=== PATIENT | female | born 1955 | race Caucasian/White ===

== ENCOUNTER 2017-11-12 09:59 | Emergency (ER) | payer SELFPAY ==
[2017-11-12 10:55] LABS: ADD MAN DIFF? NO
[2017-11-12 11:19] LABS: BASO # 0.1 x10^3/uL (0.0-0.2); BASO % 1 % (0-3); EOS # 0.1 x10^3/uL (0.0-0.7); EOS % 1 % (0-3); HEMATOCRIT 42.9 % (36.0-47.0); HEMOGLOBIN 14.6 g/dL (12.0-15.5); LYMPH # 1.1 x10^3/uL (1.0-4.8); LYMPH % 11 % (24-48); MEAN CORPUSCULAR HEMOGLOBIN 28 pg (25-35); MEAN CORPUSCULAR HGB CONC 34 g/dL (31-37); MEAN CORPUSCULAR VOLUME 82 fL (79-100); MONO # 0.7 x10^3/uL (0.0-1.1); MONO % 7 % (0-9); NEUT # 7.5 x10^3uL (1.8-7.7); NEUT % 80 % (31-73); PLATELET COUNT 244 x10^3/uL (140-400); RED BLOOD COUNT 5.23 x10^6/uL (3.50-5.40); RED CELL DISTRIBUTION WIDTH 15.6 % (11.5-14.5); WHITE BLOOD COUNT 9.5 x10^3/uL (4.0-11.0)
[2017-11-12 11:24] LABS: ANION GAP 8 (6-14); BLOOD UREA NITROGEN 26 mg/dL (7-20); CALCIUM 9.3 mg/dL (8.5-10.1); CARBON DIOXIDE 29 mmol/L (21-32); CHLORIDE 103 mmol/L (98-107); CREATININE 1.1 mg/dL (0.6-1.0); GFR 50.8; GLUCOSE 175 mg/dL (70-99); POTASSIUM 4.5 mmol/L (3.5-5.1); SODIUM 140 mmol/L (136-145)
== END 2017-11-12 13:15 | disposition home or self-care (01) ==
LOC: ER 09:59
DX: I80.02 Phlebitis and thrombophlebitis of superficial vessels of left lower extremity (principal); E11.9 Type 2 diabetes mellitus without complications; E78.00 Pure hypercholesterolemia, unspecified; I11.0 Hypertensive heart disease with heart failure; I50.9 Heart failure, unspecified; Z88.2 Allergy status to sulfonamides; Z86.718 Personal history of other venous thrombosis and embolism
CPT/HCPCS: 36415; 80048; 85025; 93971; 99285-25

== ENCOUNTER 2019-10-02 09:39 | Emergency (ER) | payer SELFPAY ==
[~2019-10-02] VITALS: Ht 172.7 cm; Wt 97.3 kg
[~2019-10-02 09:39] MED LIST: APIX5TAB PO; CARV6.2511 PO; CEPH-264 PO; FURO40TA4 PO; LISI-338 PO; LISI10TA PO; LOVA10TA PO; METF500T16 PO; Metoprolol Tartrate PO; POTA20TA4 PO
[2019-10-02 10:14] LABS: BILIRUBIN,URINE NEGATIVE (NEG); CLARITY,URINE CLOUDY; NITRITE,URINE POSITIVE (NEG); PROTEIN,URINE 100 mg/dL (NEG-TRACE)
--- NOTE | 2019-10-02 10:14 | PHYS DOC ---
Past Medical History Past Medical History: CHF, Diabetes-Type II, High Cholesterol, Hypertension Additional Past Medical Histor: DVT Past Surgical History: No Surgical History Smoking Status: Never Smoker Alcohol Use: None Drug Use: None Adult General Chief Complaint Chief Complaint: URINARY FREQUENCY HPI HPI 63-year-old female with significant history of hypertension, DVT on Eliquis, who presents for evaluation of a one-day history of dark colored urine with urinary frequency. No dysuria, abdominal pain, nausea, vomiting. She also reports a two- week history of nonproductive cough. No fever, but having some mild chills. No significant travel history or sick contacts. Review of Systems Review of Systems General: No fevers, chills. Eyes: No blurred vision, diplopia. ENT: No nasal congestion, sore throat. CV: No chest pain, edema. Resp: No shortness of breath. Reports cough. GI: No abdominal pain, nausea, vomiting. : No dysuria. Reports urinary frequency, dark colored urine. Neuro: No headache, dizziness, weakness. MSK: No myalgia, arthralgia, back pain. Skin: No acute rash, lesion. All other systems were reviewed and found to be within normal limits, except as documented in this note. Current Medications Current Medications Current Medications Medications (Trade) Dose Ordered Sig/Awa Start Time Stop Time Status Last Admin Dose Admin Ceftriaxone Sodium (Rocephin) 1 gm 1X ONCE 10/02/19 11:00 10/02/19 11:09 DC Allergies Allergies Allergies Coded Allergies Type Severity Reaction Last Updated Verified Sulfa (Sulfonamide Antibiotics) Allergy Intermediate 08/07/14 No Physical Exam Physical Exam Gen: NAD. Well nourished. Head: NC/AT Eyes: No scleral icterus. No conjunctival injection. ENT: MMM. Posterior OP clear. Neck: Supple. NT. CV: RRR. Peripheral pulses intact. Resp: CTAB. Abd: Soft. NT. ND. MSK: No peripheral cyanosis. No edema. Neuro: Awake and alert. Skin: Warm. Dry. Psych: Appropriate mood & affect. Current Patient Data Lab Values Laboratory Tests Test 10/02/19 09:47 10/02/19 10:35 Urine Collection Type Unknown Urine Color Yellow Urine Clarity Cloudy Urine pH 6.0 (<5.0-8.0) Urine Specific [place] 1.015 (1.000-1.030) Urine Protein 100 mg/dL (NEG-TRACE) Urine Glucose (UA) 100 mg/dL (NEG) Urine Ketones (Stick) 15 mg/dL (NEG) Urine Blood Large (NEG) Urine Nitrite Positive (NEG) Urine Bilirubin Negative (NEG) Urine Urobilinogen Dipstick 1.0 mg/dL (0.2 mg/dL) Urine Leukocyte Esterase Moderate (NEG) Urine RBC Tntc /HPF (0-2) Urine WBC >40 /HPF (0-4) Urine Squamous Epithelial Cells Few /LPF Urine Bacteria Moderate /HPF (0-FEW) Urine Mucus Slight /LPF White Blood Count 15.3 x10^3/uL (4.0-11.0) H Red Blood Count 5.18 x10^6/uL (3.50-5.40) Hemoglobin 14.3 g/dL (12.0-15.5) Hematocrit 42.3 % (36.0-47.0) Mean Corpuscular Volume 82 fL (79-100) Mean Corpuscular Hemoglobin 28 pg (25-35) Mean Corpuscular Hemoglobin Concent 34 g/dL (31-37) Red Cell Distribution Width 17.0 % (11.5-14.5) H Platelet Count 193 x10^3/uL (140-400) Neutrophils (%) (Auto) 87 % (31-73) H Lymphocytes (%) (Auto) 3 % (24-48) L Monocytes (%) (Auto) 10 % (0-9) H Eosinophils (%) (Auto) 0 % (0-3) Basophils (%) (Auto) 0 % (0-3) Neutrophils # (Auto) 13.4 x10^3/uL (1.8-7.7) H Lymphocytes # (Auto) 0.4 x10^3/uL (1.0-4.8) L Monocytes # (Auto) 1.5 x10^3/uL (0.0-1.1) H Eosinophils # (Auto) 0.0 x10^3/uL (0.0-0.7) Basophils # (Auto) 0.0 x10^3/uL (0.0-0.2) Segmented Neutrophils % 62 % (35-66) Band Neutrophils % 26 % (0-9) H Lymphocytes % 2 % (24-48) L Monocytes % 10 % (0-10) Platelet Estimate Adequate (ADEQUATE) Anisocytosis Mod Sodium Level 137 mmol/L (136-145) Potassium Level 4.0 mmol/L (3.5-5.1) Chloride Level 98 mmol/L (98-107) Carbon Dioxide Level 29 mmol/L (21-32) Anion Gap 10 (6-14) Blood Urea Nitrogen 25 mg/dL (7-20) H Creatinine 1.4 mg/dL (0.6-1.0) H Estimated GFR (Cockcroft-Gault) 38.2 BUN/Creatinine Ratio 18 (6-20) Glucose Level 201 mg/dL (70-99) H Calcium Level 8.7 mg/dL (8.5-10.1) Magnesium Level 1.8 mg/dL (1.8-2.4) Total Bilirubin 1.1 mg/dL (0.2-1.0) H Aspartate Amino Transferase (AST) 30 U/L (15-37) Alanine Aminotransferase (ALT) 36 U/L (14-59) Alkaline Phosphatase 92 U/L (46-116) Total Protein 6.8 g/dL (6.4-8.2) Albumin 3.0 g/dL (3.4-5.0) L Albumin/Globulin Ratio 0.8 (1.0-1.7) L Laboratory Tests 10/02/19 10:35 Laboratory Tests 10/02/19 10:35 EKG EKG [] Radiology/Procedures Radiology/Procedures [] Course & Med Decision Making Course & Med Decision Making Pertinent Labs and Imaging studies reviewed. (See chart for details) In summary, 63-year-old female who presents for evaluation of gross hematuria and urinary frequency. No abdominal pain or other GI/ complaints. Urinalysis is indicative of UTI and a minimally contaminated sample receiving Rocephin 1 g IV. Mild leukocytosis, otherwise unremarkable lab work. Chest x-ray without acute infiltrative process, though incidental finding of likely left thyroid nodule/mass, of which the patient was informed the need for outpatient follow-up and likely ultrasonography. Prescription for Macrobid 5 days. Outpatient PMD follow-up. Return precautions given. Dragon Disclaimer Dragon Disclaimer This electronic medical record was generated, in whole or in part, using a voice recognition dictation system. 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
[2019-10-02 10:27] LABS: COLOR,URINE YELLOW
[2019-10-02 10:34] LABS: BACTERIA,URINE MODERATE /HPF (0-FEW); RBC,URINE TNTC /HPF (0-2); SQUAMOUS EPITHELIAL CELL,UR FEW /LPF; WBC,URINE >40 /HPF (0-4)
[2019-10-02 10:52] LABS: BASO % 0 % (0-3); EOS % 0 % (0-3); HEMATOCRIT 42.3 % (36.0-47.0); HEMOGLOBIN 14.3 g/dL (12.0-15.5); LYMPH # 0.4 x10^3/uL (1.0-4.8); LYMPH % 3 % (24-48); MEAN CORPUSCULAR HEMOGLOBIN 28 pg (25-35); MEAN CORPUSCULAR HGB CONC 34 g/dL (31-37); MEAN CORPUSCULAR VOLUME 82 fL (79-100); MONO # 1.5 x10^3/uL (0.0-1.1); MONO % 10 % (0-9); NEUT # 13.4 x10^3/uL (1.8-7.7); NEUT % 87 % (31-73); PLATELET COUNT 193 x10^3/uL (140-400); RED BLOOD COUNT 5.18 x10^6/uL (3.50-5.40); WHITE BLOOD COUNT 15.3 x10^3/uL (4.0-11.0)
[2019-10-02] MEDS ORDERED: cefTRIAXone IV Push 1 GM VIAL. IVP ONE (11:00)
[2019-10-02 11:03] LABS: CALCIUM 8.7 mg/dL (8.5-10.1); CREATININE 1.4 mg/dL (0.6-1.0); GFR 38.2
[2019-10-02 11:08] LABS: ALBUMIN/GLOBULIN RATIO 0.8 (1.0-1.7); MAGNESIUM 1.8 mg/dL (1.8-2.4); TOTAL BILIRUBIN 1.1 mg/dL (0.2-1.0); TOTAL PROTEIN 6.8 g/dL (6.4-8.2)
[2019-10-02 11:12] VITALS: BP 113/66
--- NOTE | 2019-10-02 11:12 | RAD ---
PA and lateral chest x-rays HISTORY: Cough. COMPARISON: Chest x-ray July 27, 2014 FINDINGS: There is mild cardiomegaly. This is stable. There is rightward shift of the lower cervical tracheal silhouette suggesting the presence of a large left thyroid nodule or cervical mass, this is similar the prior study. No pneumothorax. No pleural effusions. No pulmonary opacities. Bones are unremarkable. IMPRESSION: 1. No acute process. 2. Cardiomegaly stable. 3. Rightward deviation of the lower cervical tracheal silhouette. This is likely due to a large left thyroid nodule. Cervical mass or adenopathy would be secondary considerations. This could be further assessed with neck sonography or CT imaging. Electronically signed by: Amarjit Rendon MD (10/02/2019 11:09 AM) [id number]
[2019-10-02 11:27] LABS: % BANDS 26 % (0-9); % LYMPHS 2 % (24-48); % MONOS 10 % (0-10); % SEGS 62 % (35-66)
[2019-10-02 11:34] LABS: ANISOCYTOSIS MOD; PLT ESTIMATE ADEQUATE (ADEQUATE)
[2019-10-02] MEDS ORDERED: NITR100C62 PO (11:38)
== END 2019-10-02 11:57 | disposition home or self-care (01) ==
LOC: ER 09:39
DX: N39.0 Urinary tract infection, site not specified (principal); R31.9 Hematuria, unspecified; E04.1 Nontoxic single thyroid nodule; I11.0 Hypertensive heart disease with heart failure; I50.9 Heart failure, unspecified; E11.9 Type 2 diabetes mellitus without complications; E78.00 Pure hypercholesterolemia, unspecified; Z86.718 Personal history of other venous thrombosis and embolism
CPT/HCPCS: 36415; 71046; 80053; 81001; 83735; 85007; 85025; 87086; 96374; 99284; J0696

== ENCOUNTER → 2019-12-19 | Outpatient (CLI) | payer OTHER ==
[~2019-12-19] MED LIST changes: +NITR100C62 PO
--- NOTE | 2019-12-19 09:28 | RAD ---
EXAMINATION: THYROID ULTRASOUND, 12/19/2019 8:30 AM CLINICAL INDICATION: Left thyroid nodule TECHNIQUE: Grayscale and color Doppler sonographic images of the thyroid are submitted for interpretation. COMPARISON: None. FINDINGS: The right thyroid lobe measures 3.8 x 1.0 x 1.4 cm. Right thyroid parenchyma is homogeneous with normal echogenicity. There are a few benign simple cysts measuring up to 2 mm. No suspicious thyroid nodule. The left thyroid lobe measures 7.4 x 4.7 x 4.7 cm. There is a large partially cystic, partially solid mass in the left thyroid lobe, difficult to measure but approximately 5.8 x 4.0 x 4.7 cm. Solid components are isoechoic. This is wider than tall, and has possible extrathyroidal extension. No definite calcifications. There is some blood flow within some of the solid components. IMPRESSION: Approximately 5.8 cm heterogeneous cystic and solid mass in the left thyroid lobe, at least moderately suspicious (TIRADS 4). Normal size and appearance of right thyroid lobe. Recommend ultrasound-guided fine-needle aspiration of left thyroid lesion. Electronically signed by: Latrice Rudolph MD (12/19/2019 9:25 AM) [id number]
--- NOTE | 2019-12-19 09:34 | RAD ---
CT soft tissue neck without contrast HISTORY: Mass of the neck. Thyroid swelling. COMPARISON: Neck soft tissue ultrasound December 19, 2019. FINDINGS: Replacement of the left thyroid lobe with a large hypodense mass which demonstrates a few punctate calcifications, the mass measures 7 cm craniocaudal by 5.5 cm AP by 4.8 cm transverse, the mass deviates the larynx, trachea and esophagus within the neck to the right and deviates the left carotid artery and jugular vein to the left. The larynx, pharynx, nasopharynx, oral cavity, salivary glands, retail experience specialist spaces, parapharyngeal spaces, sublingual space, submandibular space are unremarkable. No enlarged adenopathy in the neck evident. Lung apices and bones are unremarkable. IMPRESSION: Left thyroid lobe 7.0 x 5.5 x 4.8 cm mass which has a few punctate calcifications. The mass deviates the trachea to the right. No cervical adenopathy. This raises concern for thyroid malignancy given the bulk of the mass and presence of calcifications. Exposure: One or more of the following individualized dose reduction techniques were utilized for this examination: 1. Automated exposure control 2. Adjustment of the mA and/or kV according to patient size 3. Use of iterative reconstruction technique Electronically signed by: Amarjit Rendon MD (12/19/2019 9:31 AM) [id number]
== END | disposition home or self-care (01) ==
LOC: US 07:46
PROVIDERS: ATTEND Nurse Practitioner Family
DX: E04.1 Nontoxic single thyroid nodule (principal); E04.9 Nontoxic goiter, unspecified; R22.1 Localized swelling, mass and lump, neck; E11.9 Type 2 diabetes mellitus without complications; I11.0 Hypertensive heart disease with heart failure; I50.9 Heart failure, unspecified; Z79.82 Long term (current) use of aspirin; Z79.899 Other long term (current) drug therapy; Z88.2 Allergy status to sulfonamides
CPT/HCPCS: 70490; 76536

== ENCOUNTER → 2020-03-13 | Outpatient (CLI) | payer OTHER ==
--- NOTE | 2020-03-13 17:40 | RAD ---
EXAM: Pelvic Ultrasound Complete INDICATION: Reason: ABNORMAL UT BLEEDING / Spl. Instructions: / History: ? TECHNIQUE: Real-time ultrasound of the pelvis with permanent freeze-frame documentation. Both transabdominal and endovaginal approaches were utilized. COMPARISON:?None. ? FINDINGS: ? UTERUS:?Uterus 11.8 x 8.4 x 7.0 cm.? Endometrial thickness is 3.6 cm. No uterine or endometrial abnormality. ? RIGHT OVARY/ADNEXA: Right ovary 3.5 x 2.0 x 2.0 cm.? Unremarkable. Normal ovarian blood flow. LEFT OVARY/ADNEXA:?Left ovary not well seen with either approach. ? OTHER:?No evidence of significant pelvic free fluid. ? IMPRESSION: ? Abnormal thickening of the endometrial stripe. Differential considerations include hyperplasia, polyp or carcinoma. Consider hysteroscopy with biopsy. Electronically signed by: Kim Wells MD (03/13/2020 5:37 PM) [id number]
== END | disposition home or self-care (01) ==
LOC: US 14:36
PROVIDERS: ATTEND Nurse Practitioner Family
DX: N93.9 Abnormal uterine and vaginal bleeding, unspecified (principal)
CPT/HCPCS: 76830; 76856

== ENCOUNTER → 2020-03-20 | Outpatient (CLI) | payer OTHER ==
--- NOTE | 2020-03-20 15:34 | RAD ---
EXAM: ULTRASOUND-GUIDED THYROID FINE-NEEDLE ASPIRATION. HISTORY: Thyroid nodule. Ultrasound-guided biopsy is requested. COMPARISON: CT soft tissue neck of 12/19/2019 FINDINGS: The procedure along with its risks and benefits were explained to the patient. They agreed to proceed. A timeout procedure was performed. Sonographic images of the thyroid gland were obtained. The solid target nodule in the left thyroid lobe was adequately visualized for biopsy. On CT, this mass measured 7.0 x 5.5 x 4.8 cm. The overlying skin was sterilely prepped and infiltrated with 1% lidocaine for local anesthesia. Under ultrasound guidance, 4 aspirates were obtained using 25-gauge needles. These were hand delivered to pathology who determined them adequate for diagnosis. In addition, two 20-gauge core biopsy samples using a Temno needle were obtained of the dominant left neck mass. Hemostasis was assured postbiopsy with direct compression. A sterile dressing was placed. There were no immediate complications. IMPRESSION: 1. Successful ultrasound-guided fine-needle aspiration and core needle biopsy of the left thyroid mass. Electronically signed by: Kim Wells MD (03/20/2020 3:31 PM) [id number]
--- NOTE | 2020-03-21 15:08 | PATHOLOGY ---
Note [facility] Accession Number: [id number] TESTS RESULT FLAG UNITS REF RANGE LAB Clinician Provided Cytology Information No. of containers..01 Other (Miscellaneous) Source: LEFT THYROID NODULE DIAGNOSIS: LEFT THYROID NODULE INCONCLUSIVE. [place] CATEGORY III. FOLLICULAR LESION OF UNDETERMINED SIGNIFICANCE. SPECIMEN CONSISTS OF ABUNDANT FOLLICULAR CELLS WITH SCANT COLLOID. THE DIFFERENTIAL DIAGNOSIS INCLUDES CELLULAR ADENOMATOID NODULE AND FOLLICULAR NEOPLASM. COLLOID IS PRESENT. THIS INTERPRETATION INCLUDES EVALUATION OF A CELL BLOCK. COMMENT, THERE ARE FEW MICROFOLICLES AND SOME MILD ATYPIA. THIS CASE WAS ALSO REVIEWED BY DR. ARTEM HERRERA. CORRELATE WITH SURGICAL BIOPSY [id number]. MOLECULAR TESTING WILL BE DONE AND AN ADDITIONAL REPORT WILL FOLLOW. Pathologist ICD10: 02 R89.6 Signed out by: Wil Craig MD, Pathologist NPI- [id number] Performed by: Dori Cordoba, Court Transcriber ([facility]) Gross description: 30ML, CLEAR RED, 2F 2A 2HE /LCS 03/20/2020 1834 Local FLAG LEGEND: L-Low Normal,H-High Normal,LL-Alert Low,HH-Alert High <-Panic Low,>-Panic High,A-Abnormal,AA-Critical Abnormal Performed at: [facility] [address] [place] [address] [address] [place] [address] Kevin Stallings MD, [facility] [address] [address] Vince Olivo MD, Specimen Comment: A courtesy copy of this report has been sent to [phone] Specimen Comment: [phone], Specimen Comment: Report sent to ,DR JAIME / DESMOND / NATALIE Specimen Comment: A duplicate report has been generated due to demographic updates. Performed at: [address], [place] [id number] MD Kevin Stallings MD Phone: [phone]
--- NOTE | 2020-03-22 12:07 | PATHOLOGY ---
[facility] Accession Number: [id number] . 01 Material submitted: . thyroid gland - LEFT TYROID NODULE FNA 5.8CM AND CORE BX. Modifiers: left . 01 Clinical history: . THYROID NODULE . 02 Diagnosis: Thyroid "left thyroid nodule", needle core biopsy: - Follicular thyroid tissue demonstrating variability in size and shape of follicles, with focal reactive change of follicular epithelium, focal fibrosis and scattered hemosiderin laden macrophages. - Please see comment. (MLK:pit; 03/21/2020) [facility] 03/22/2020 1105 Local . 02 Comment: This histologic pattern of the biopsy is suggestive of an adenomatoid nodule. (MLK:pit; 03/21/2020) . 02 Electronically signed: . Criselda Martinez MD, Pathologist NPI- [id number] . 01 Gross description: . The specimen is received in formalin, labeled "Estella Gabi, left thyroid core biopsy". Received is a single needle core of pale lerner friable tissue measuring 0.8 cm in length by 0.1 cm in diameter. The specimen is filtered and entirely submitted in cassette A1. (CAA; 03/20/2020) QAC/QAC 03/21/2020 1411 Local . 02 Pathologist provided ICD-10: E04.1 . 02 CPT . 744064 Specimen Comment: A courtesy copy of this report has been sent to [phone] Specimen Comment: [phone], Specimen Comment: Report sent to ,DR JAIME / DESMOND / TRUTH Performed at: [address], [place], [place] [id number] MD Kevin Stallings MD Phone: [phone] Performed at: [address] [id number] MD Chriss Marvin MD Phone: [phone]
== END | disposition home or self-care (01) ==
LOC: US 09:12
PROVIDERS: ATTEND Nurse Practitioner Family
DX: E04.1 Nontoxic single thyroid nodule (principal); I11.0 Hypertensive heart disease with heart failure; I50.9 Heart failure, unspecified; E11.9 Type 2 diabetes mellitus without complications; R22.1 Localized swelling, mass and lump, neck; Z88.2 Allergy status to sulfonamides; Z79.899 Other long term (current) drug therapy; Z79.84 Long term (current) use of oral hypoglycemic drugs
CPT/HCPCS: 60300; 76942; 88173; 88305

== ENCOUNTER → 2020-05-10 | Outpatient (CLI) | payer SELFPAY ==
--- NOTE | 2020-05-10 15:39 | RAD ---
EXAM: CHEST 2 VIEWS. HISTORY: Shortness of breath. COMPARISON: 10/02/2019. FINDINGS: Frontal and lateral views of the chest are obtained. There are mild interstitial opacities in both bases. There is no pneumothorax or pleural effusion. The heart is moderately enlarged. IMPRESSION: 1. Bibasilar atelectasis versus mild pulmonary edema. Moderate cardiomegaly. Electronically signed by: Ruby Wolf MD (05/10/2020 3:36 PM) [id number]
== END ==
LOC: RAD 14:55
PROVIDERS: ATTEND Internal Medicine Cardiovascular Disease
DX: J98.11 Atelectasis (principal); I51.7 Cardiomegaly
CPT/HCPCS: 71046